=== PATIENT | female | born 1955 | race Caucasian/White ===

== ENCOUNTER 2020-10-18 17:25 | Emergency (ER) | payer MEDICARE, BC ==
[~2020-10-18] VITALS: Ht 172.7 cm; Wt 106.8 kg
[~2020-10-18 17:25] MED LIST: CIPR250T4 PO; DEXILANT PO; DICY10CA18 PO; DULO60CA65 PO; FENO130C14 PO; LANTUS SQ; LINA5TAB4 PO; METR-159 PO; OXCA150T53 PO; TEMA30CA5 PO
[2020-10-18] MEDS ORDERED: HYDROcodone/acetaminophen 5mg/325mg tablet PO ONE (17:55)
[2020-10-18] MEDS ORDERED: LIDOcaine 1% W/epiNEPHrine 1:200,000 10ml vial IJ ONE (17:55)
[2020-10-18] MEDS ORDERED: bacitracin 15gm ointment TP ONE (17:55)
[2020-10-18] MEDS ORDERED: TETanus/Pertussis (Acell)/Diphther VAC/PF (Tdap-Adult) 0.5ml syringe IMVAC ONE (17:55)
[2020-10-18] MEDS ORDERED: ondansetron 4mg rapidly disintigrating tab PO ONE (17:55)
[2020-10-18 18:07] VITALS: BP 143/78
[2020-10-18] MEDS ORDERED: ceFAZolin 1gm IM kit IM ONE (18:20)
[2020-10-18] MEDS ORDERED: ONDA4TAB6 PO (18:23)
[2020-10-18] MEDS ORDERED: CEPH250T PO (18:23)
[2020-10-18] MEDS ORDERED: HYDR-4383 PO (18:23)
== END 2020-10-18 19:10 | disposition home or self-care (01) ==
LOC: ER 17:25
DX: S62.621A Displaced fracture of middle phalanx of left index finger, initial encounter for closed fracture (principal); E11.9 Type 2 diabetes mellitus without complications; Z79.899 Other long term (current) drug therapy; W23.0XXA Caught, crushed, jammed, or pinched between moving objects, initial encounter; Y93.89 Activity, other specified; Y92.89 Other specified places as the place of occurrence of the external cause; Y99.8 Other external cause status
CPT/HCPCS: 12001; 73140; 90471; 90715; 96372; 99284; J0690